=== PATIENT | female | born 1955 | race Caucasian/White ===

== ENCOUNTER 2023-05-02 15:27 | Emergency (ER) | payer OTHER ==
[~2023-05-02] VITALS: Ht 162.6 cm; Wt 49.4 kg
[2023-05-02] MEDS ORDERED: ALENDRONATE SOD70 MG PO (17:03)
[2023-05-02] MEDS ORDERED: TRAZODONE HCL150 MG PO (17:03)
[2023-05-02] MEDS ORDERED: ALPRAZOLAM XR3 MG PO (17:04)
== END 2023-05-02 21:38 | disposition left against medical advice (07) ==
LOC: ER 15:27
DX: Z53.21 Procedure and treatment not carried out due to patient leaving prior to being seen by health care provider (principal)